=== PATIENT | male | born 1960 | race Caucasian/White ===

== ENCOUNTER 2016-06-21 07:48 | Emergency (ER) | payer OTHER ==
[2016-06-21 08:31] LABS: BASO % 0.8 % (0.2-1.2); EOS # 0.1 10_X3_uL (0.0-0.5); EOS % 2.6 % (0.8-7.0); GRAN # 3.6 10_X3_uL (1.8-5.4); GRAN % 66.5 % (34.0-67.9); HEMATOCRIT 44.4 % (40-51); HEMOGLOBIN 15.6 g/dL (13.7-17.5); LYMPH # 1.2 10_X3_uL (1.3-3.6); LYMPH % 23.3 % (21.8-53.1); MEAN CORPUSCULAR HEMOGLOBIN 30.5 pg (27.0-33.0); MEAN CORPUSCULAR HGB CONC 35.1 g/dL (32.0-36.0); MEAN CORPUSCULAR VOLUME 86.9 fL (79-92); MEAN PLATELET VOLUME 10.6 fl (7.5-11.5); MONO # 0.4 10_X3_uL (0.3-0.8); MONO % 6.8 % (5.3-12.2); PLATELET COUNT 165 x10_3/uL (163-337); RED BLOOD COUNT 5.11 x10_6/uL (4.6-6.1); RED CELL DISTRIBUTION WIDTH 14.6 % (11.6-14.4); WHITE BLOOD COUNT 5.3 x10_3/uL (4.2-9.1)
== END 2016-06-21 10:25 | disposition home or self-care (01) ==
LOC: ER 07:48
PROVIDERS: General Practice
DX: M51.36 Other intervertebral disc degeneration, lumbar region (principal); M51.34 Other intervertebral disc degeneration, thoracic region; G89.29 Other chronic pain; M54.10 Radiculopathy, site unspecified; I10 Essential (primary) hypertension; K21.9 Gastro-esophageal reflux disease without esophagitis; Z88.0 Allergy status to penicillin; Z88.8 Allergy status to other drugs, medicaments and biological substances; Z79.891 Long term (current) use of opiate analgesic; Z79.899 Other long term (current) drug therapy
CPT/HCPCS: 36415; 72128; 72131; 85025; 96372; 99283-25; J1170